=== PATIENT | female | born 1940 | race Caucasian/White ===

== ENCOUNTER → 2017-01-23 | Outpatient (CLI) | payer MEDICARE, OTHER ==
--- NOTE | 2017-01-23 17:05 | WOMENS IMAGING REPORT ---
EXAM DESCRIPTION: BILAT SCREENING MAMMO W/CAD COMPLETED DATE/TIME: 01/23/2017 2:25 pm REASON FOR STUDY: ROUTINE SCREENING; Z12.31 Z12.31 ENCNTR SCREEN MAMMOGRAM FOR MALIGNANT NEOPLASM O F VALERY COMPARISON: 2010, 2012, 2013 TECHNIQUE: Standard craniocaudal and mediolateral oblique views of each breast recorded using [employer] acquisition. LIMITATIONS: None. FINDINGS: Findings present which are benign by mammographic criteria. No suspicious masses, calcifi cations or architectural distortion. Pertinent benign findings: Benign arterial vascular calcifications and skin and breast parenchymal ca lcifications bilaterally. Read with the assistance of CAD. .[facility] - R2 Cenova Version 1.3 .[facility] - R2 Cenova Version 1.3 .[facility] - R2 Cenova Version 2.4 .[facility] - R2 Cenova Version 2.4 .[facility] - R2 Heater Tender Version 9.2 Benign mammographic findings may include one or more of the following: Smooth masses, popcorn/rim/co arse calcifications, asymmetries, post-procedure changes, and lesions with long-standing stability. IMPRESSION: BENIGN MAMMOGRAPHIC FINDINGS. BIRADS 2 BREAST DENSITY: c. The breasts are heterogeneously dense, which may obscure small masses. BIRAD: 2 BENIGN FINDING(S) RECOMMENDATION: ROUTINE SCREENING Please consider bilateral screening tomosynthesis in January 2018 COMMENT: The patient has been notified of the results by letter per SA requirements. Additional no tification policies are in place for contacting patient with suspicious or incomplete findings. Quality ID #[id number]: The [employer] recommends an annual screening mammogram for women aged 40 years or over. This facility utilizes a reminder system to ensure that all patients receive reminder letters, and/or direct phone calls for appointments. This includes reminders for routine scr eening mammograms, diagnostic mammograms, or other Breast Imaging Interventions when appropriate. Th is patient will be placed in the appropriate reminder system. The [employer] (ACR) has developed recommendations for screening MRI of the breast s in certain patient populations, to be used in conjunction with mammography. Breast MRI surveillanc e may be appropriate for women with more than 20% lifetime risk of developing breast cancer as deter mined by genetic testing, significant family history of the disease, or history of mantle radiation f or Hodgkins Disease. ACR Practice Guidelines 2008. TECHNICAL DOCUMENTATION: FINDING NUMBER: (1) ASSESSMENT: (1) JOB ID: [id number] [employer]- All Rights Reserved
== END ==
LOC: WI 11:24
PROVIDERS: ATTEND Family Medicine
DX: Z12.31 Encounter for screening mammogram for malignant neoplasm of breast (principal)
CPT/HCPCS: 77067; G0202

== ENCOUNTER 2017-05-31 13:39 | Inpatient (IN) | payer MEDICARE, OTHER ==
[2017-05-31] MEDS ORDERED: ASPIRIN 81 MG TABLET, CHEWABLE PO ONE (13:43)
[2017-05-31 14:07] LABS: ABSOLUTE BASOPHILS # (AUTO) 0.1 10^3/uL (0.0-0.2); ABSOLUTE LYMPHOCYTES (AUTO) 0.9 10^3/uL (0.5-4.7); ABSOLUTE MONOCYTES (AUTO) 0.9 10^3/uL (0.1-1.4); ABSOLUTE NEUT (AUTO) 6.2 10^3/uL (1.7-8.2); BASOPHILS % (AUTO) 0.8 % (0-2); EOSINOPHILS % (AUTO) 0.4 % (0-6); HEMATOCRIT 40.3 % (36.0-47.0); LYMPHOCYTES % (AUTO) 11.4 % (13-45); MEAN CORPUSCULAR HEMOGLOBIN 28.5 pg (27.0-33.4); MEAN CORPUSCULAR HGB CONC 34.6 g/dL (32.0-36.0); MEAN CORPUSCULAR VOLUME 82 fl (80-97); MONOCYTES % (AUTO) 11.2 % (3-13); PLATELET COUNT 161 10^3/uL (150-450); RED BLOOD COUNT 4.91 10^6/uL (3.72-5.28); SEGMENTED NEUTROPHILS % (AUTO) 76.2 % (42-78); TOTAL CELLS COUNTED % (AUTO) 100 %; WHITE BLOOD COUNT 8.2 10^3/uL (4.0-10.5)
--- NOTE | 2017-05-31 14:15 | RADIOLOGY REPORT (SQ) ---
EXAM DESCRIPTION: CHEST SINGLE VIEW COMPLETED DATE/TIME: 05/31/2017 2:07 pm REASON FOR STUDY: bed1 cp COMPARISON: 01/21/2013 EXAM PARAMETERS: NUMBER OF VIEWS: One view. TECHNIQUE: Single frontal radiographic view of the chest acquired. RADIATION DOSE: NA LIMITATIONS: None. FINDINGS: LUNGS AND PLEURA: No opacities, masses or pneumothorax. No pleural effusion. MEDIASTINUM AND HILAR STRUCTURES: No masses. Contour normal. HEART AND VASCULAR STRUCTURES: Stable cardiomegaly BONES: No acute findings. HARDWARE: None in the chest. OTHER: No other significant finding. IMPRESSION: NO ACUTE RADIOGRAPHIC FINDING IN THE CHEST. TECHNICAL DOCUMENTATION: JOB ID: [id number] [employer]- All Rights Reserved
[2017-05-31 14:25] LABS: ALANINE AMINOTRANSFERASE 28 U/L (9-52); ALBUMIN 4.2 g/dL (3.5-5.0); ALKALINE PHOSPHATASE 99 U/L (38-126); ANION GAP 12 (5-19); ASPARTATE AMINO TRANSFERASE 32 U/L (14-36); BILIRUBIN,DIRECT 0.3 mg/dL (0.0-0.4); BILIRUBIN,TOTAL 1.7 mg/dL (0.2-1.3); BLOOD UREA NITROGEN 11 mg/dL (7-20); CARBON DIOXIDE 30 mmol/L (22-30); CHLORIDE 97 mmol/L (98-107); CREATINE KINASE 73 U/L (30-135); GLUCOSE 130 mg/dL (75-110); SODIUM 138.5 mmol/L (137-145); TOTAL PROTEIN 7.8 g/dL (6.3-8.2)
[2017-05-31 14:28] LABS: POTASSIUM 2.8 mmol/L (3.6-5.0)
--- NOTE | 2017-05-31 14:31 | ER Document Report ---
ED General - General Chief Complaint: Fall Stated Complaint: FALL WEAKNESS Time Seen by Provider: 05/31/17 14:14 Mode of Arrival: Medic Information source: Patient Notes: 77-year-old female on Xarelto history of A. fib presents after a fall. Pt admits to headache, face pain. Pt had back pain with arm pain before these occured TRAVEL OUTSIDE OF THE [place] IN LAST 30 DAYS: No - HPI Onset: Just prior to arrival Onset/Duration: Sudden Quality of pain: Achy Severity: Mild Pain Level: 1 Associated symptoms: Body/muscle aches Exacerbated by: Denies Relieved by: Denies Similar symptoms previously: No Recently seen / treated by doctor: No - Related Data Allergies/Adverse Reactions: erythromycin base [Erythromycin Base] Allergy (Unknown, Verified 05/31/17 13:59) Home Medications: Current Home Medications Dofetilide [Dofetilide] 250 mcg PO Q12 05/31/17 [History] Lorazepam [Lorazepam] 0.5 mg PO Q12HP PRN 05/31/17 [History] Metoprolol Succinate [Toprol Xl 25 mg Tab.sr] 25 mg PO Q12 05/31/17 [History] Omeprazole 20 mg PO DAILY 05/31/17 [History] Rivaroxaban [Xarelto] 20 mg PO DAILY 05/31/17 [History] Past Medical History - Social History Smoking Status: Never Smoker Cigarette use (# per day): No Chew tobacco use (# tins/day): No Smoking Education Provided: No Family History: Hypertension GI Medical History: Reports: Hx Gastroesophageal Reflux Disease Musculoskeltal Medical History: Reports Hx Arthritis Past Surgical History: Reports: Hx Cholecystectomy, Hx Tonsillectomy Review of Systems - Review of Systems Notes: REVIEW OF SYSTEMS: CONSTITUTIONAL : Denies fever, chills, or sweats. Denies recent illness. EENT: Denies eye, ear, throat, or mouth pain or symptoms. Denies nasal or sinus congestion or discharge. Denies throat, tongue, or mouth swelling or difficulty swallowing. CARDIOVASCULAR: admits ot afib RESPIRATORY: Denies cough, cold, or chest congestion. Denies shortness of breath, difficulty breathing, or wheezing. GASTROINTESTINAL: Denies abdominal pain or distention. Denies nausea, vomiting , or diarrhea. Denies blood in vomitus, stools, or per rectum. Denies black, tarry stools. Denies constipation. GENITOURINARY: Denies difficulty urinating, painful urination, burning, frequency, blood in urine, or discharge. FEMALE GENITOURINARY: Denies vaginal bleeding, heavy or abnormal periods, irregular periods. Denies vaginal discharge or odor. MUSCULOSKELETAL: admits ot back pain HEMATOLOGIC : Denies easy bruising or bleeding. LYMPHATIC: Denies swollen, enlarged glands. NEUROLOGICAL: admits to head injury Denies confusion or altered mental status. Denies passing out or loss of consciousness. Denies dizziness or lightheadedness. Denies headache. Denies weakness or paralysis or loss of use of either side. Denies problems with gait or speech. Denies sensory loss, numbness, or tingling. Denies seizures. PSYCHIATRIC: Denies anxiety or stress. Denies depression, suicidal ideation, or homicidal ideation. ALL OTHER SYSTEMS REVIEWED AND NEGATIVE. PHYSICAL EXAMINATION: GENERAL: Well-appearing, well-nourished and in no acute distress. HEAD: Atraumatic, normocephalic. EYES: Pupils equal round and reactive to light, extraocular movements intact, conjunctiva are normal. ENT: Nares patent, oropharynx clear without exudates. Moist mucous membranes. NECK: Normal range of motion, supple without lymphadenopathy LUNGS: Breath sounds clear to auscultation bilaterally and equal. No wheezes rales or rhonchi. HEART: irregular rate and rhythm ABDOMEN: Soft, nontender, nondistended abdomen. No guarding, no rebound. No masses appreciated. Female : deferred Musculoskeletal: Normal range of motion, no pitting or edema. No cyanosis. NEUROLOGICAL: Cranial nerves grossly intact. Normal speech, normal gait. Normal sensory, motor exams PSYCH: Normal mood, normal affect. SKIN: Warm, Dry, normal turgor, no rashes or lesions noted. Dictation was performed using [employer] voice recognition software Physical Exam - Vital signs Vitals: Pulse Ox 99 05/31/17 13:43 Course - Re-evaluation Re-evalutation: 05/31/17 14:37 Patient's potassium noted to be 2.8, CT head was negative but face does note orbital maxillary sinus fracture - Vital Signs Vital signs: Temp Pulse Resp BP Pulse Ox 17 116/82 96 05/31/17 16:15 05/31/17 16:15 05/31/17 16:15 - Laboratory Result Diagrams: 05/31/17 13:57 05/31/17 13:57 Laboratory results interpreted by me: 05/31/17 05/31/17 05/31/17 13:57 13:57 13:57 Lymphocytes % 11.4 L Potassium 2.8 L* Chloride 97 L Glucose 130 H Total Bilirubin 1.7 H NT-Pro-B Natriuret Pep 1840 H Critical Care Note - Critical Care Note Total time excluding time spent on procedures (mins): 45 Comments: minutes of critical care time spent in direct contact evaluating and reevaluating the patient, treating symptoms, reviewing labs and studies and speaking with family and consultants excluding any procedures Discharge - Discharge Clinical Impression: Atrial fibrillation with RVR Condition: Fair Disposition: ADMITTED INPATIENT Admitting Provider: Hospitalist Unit Admitted: IMCU Referrals: KRYS MARTINEZ MD [Primary Care Provider] - Follow up as needed
--- NOTE | 2017-05-31 14:31 | RADIOLOGY REPORT (SQ) ---
EXAM DESCRIPTION: CT HEAD WITHOUT COMPLETED DATE/TIME: 05/31/2017 2:20 pm REASON FOR STUDY: bed 1-pt ams s/p fall per dr lopez COMPARISON: CT brain 04/21/2010 TECHNIQUE: Axial images acquired through the brain without intravenous contrast. Images reviewed wi th bone, brain and subdural windows. Images stored on PACS. All CT scanners at this facility use dose modulation, iterative reconstruction, and/or weight based d osing when appropriate to reduce radiation dose to as low as reasonably achievable (ALARA). [facility]: Dose Right [facility]: CareDose [facility]: Dose Right [facility]: Teradose 4D [facility]: Smart appAttach RADIATION DOSE: CT Rad equipment meets quality standard of care and radiation dose reduction techniq ues were employed. CTDIvol: 61.8 mGy. DLP: 1163 mGy-cm. mGy. LIMITATIONS: None. FINDINGS: VENTRICLES: Normal size and contour. CEREBRUM: Moderate bifrontal and biparietal low attenuation in the deep periventricular white matter from small vessel disease. No CT evidence of acute large territory ischemic change, acute intracrani al hemorrhage, mass effect, or midline shift. CEREBELLUM: No masses. No hemorrhage. No alteration of density. No evidence for acute infarction. EXTRAAXIAL SPACES: No fluid collections. No masses. ORBITS AND GLOBE: No intra- or extraconal masses. Normal contour of globe without masses. CALVARIUM: No fracture. PARANASAL SINUSES: Hemorrhage in the right maxillary sinus related to fractures. SOFT TISSUES: No mass or hematoma. OTHER: There is a right orbital floor fracture. Nondisplaced fractures are also seen in the right an terior and posterior short of the maxillary sinus. IMPRESSION: No acute intracranial changes Moderate white matter disease Hemorrhage in the right maxillary sinus related to right orbital floor fracture, and anterior and pos terior right maxillary sinus fractures EVIDENCE OF ACUTE STROKE: NO. COMMENT: Quality ID # [id number]: Final reports with documentation of one or more dose reduction techniques (e.g., Automated exposure control, adjustment of the mA and/or kV according to patient size, use of iterative reconstruction technique) TECHNICAL DOCUMENTATION: JOB ID: [id number] [employer]- All Rights Reserved
[2017-05-31] MEDS ORDERED: DILTIAZEM HCL INJ 25 MG/5 ML VIAL IV ONE (14:32)
[2017-05-31] MEDS ORDERED: METOCLOPRAMIDE HCL INJ/PF 10 MG/2 ML SDV IV ONE (14:34)
[2017-05-31 14:35] LABS: CREATINE KINASE MB 0.23 ng/mL (<4.55); TROPONIN I 0.013 ng/mL
--- NOTE | 2017-05-31 14:35 | RADIOLOGY REPORT (SQ) ---
EXAM DESCRIPTION: CT CERVICAL SPINE WITHOUT COMPLETED DATE/TIME: 05/31/2017 2:20 pm REASON FOR STUDY: bed 1-pt ams s/p fall per dr lopez COMPARISON: CT brain same date TECHNIQUE: Axial images acquired through the cervical spine without intravenous contrast. Images re viewed with lung, soft tissue and bone windows. Reconstructed coronal and sagittal MPR images review ed. Images stored on PACS. All CT scanners at this facility use dose modulation, iterative reconstruction, and/or weight based d osing when appropriate to reduce radiation dose to as low as reasonably achievable (ALARA). [facility]: Dose Right [facility]: CareDose [facility]: Dose Right [facility]: Teradose 4D [facility]: [employer] RADIATION DOSE: CT Rad equipment meets quality standard of care and radiation dose reduction techniq ues were employed. CTDIvol: 17.3 mGy. DLP: 362 mGy-cm. mGy. LIMITATIONS: None. FINDINGS: ALIGNMENT: Anatomic. MINERALIZATION: Osteopenic VERTEBRAL BODIES: No fractures or dislocation. DISCS: No significant disc disease. There is moderate to high-grade right right foraminal narrowing at C5-6 from facet and uncovertebral hypertrophy. Moderate bilateral foraminal narrowing at C6-7 fro m facet and uncovertebral hypertrophy. FACETS, LATERAL MASSES, POSTERIOR ELEMENTS: No fractures. No dislocation. No acute findings. HARDWARE: None in the spine. VISUALIZED RIBS: No fractures. LUNG APICES AND SOFT TISSUES: No significant or acute findings. OTHER: No other significant finding. IMPRESSION: No acute fracture or malalignment. TECHNICAL DOCUMENTATION: JOB ID: [id number] Quality ID # [id number]: Final reports with documentation of one or more dose reduction techniques (e.g., Au tomated exposure control, adjustment of the mA and/or kV according to patient size, use of iterative reconstruction technique) 2010 [employer]- All Rights Reserved
[2017-05-31] MEDS ORDERED: POTASSIUM CHLORIDE 10 MEQ TABLET.SA PO ONE (14:37)
[2017-05-31 14:57] LABS: INTERNATIONAL RATION (INR) 0.98; PROTHROMBIN TIME 13.7 SEC (11.4-15.4)
[2017-05-31] MEDS: DILTIAZEM HCL/D5W 125 MG/125 ML RTUINJ IV PRN ×2 (15:01→22:15)
[2017-05-31] MEDS ORDERED: ACETAMINOPHEN 325 MG TABLET PO PRN (16:17)
[2017-05-31] MEDS ORDERED: LEVALBUTEROL HCL NEB 0.63 MG/3 ML AMPUL NEB PRN (16:17)
[2017-05-31] MEDS: POTASSI CL 20 MEQ/50 ML RIDER 20 MEQ/50 ML RTUPB IV SCH ×3 (16:32→20:13)
[2017-05-31] MEDS ORDERED: LORAZEPAM 1 MG TABLET PO PRN (17:40)
--- NOTE | 2017-05-31 18:08 | PDOC H&P ---
History of Present Illness Admission Date/PCP: 05/31/17 16:33 KRYS MARTINEZ MD History of Present Illness: ANNIE RUIZ is a 77 year old lady with a past medical history of. Hypertension Atrial Fibrillation on Xarelto and Tikosyn GERD Anxiety He reports having a cough and raspy throat for the past 2-3 days with generalized weakness and decreased appetite. She has had no vomiting abdominal pain chest pain or shortness of breath. This morning around 1130 she was in bed when she got up to go to the bathroom she felt nauseated and dizzy and fell on the floor. She noticed pain around her right eye and head. Her grandson heard her fall and ran in and saw her on her side on the floor she was awake and alert at the time. She was brought into the emergency room and a CAT scan of the head showed no intracranial bleed however did show a Right inferior orbital wall fracture with Right anterior and posterior maxillary sinus wall fractures and in the right maxillary sinus. Has some right periorbital edema. No double vision. Has had loose stools approximately twice a day for the past 1 month. No abdominal pain or cramping no hematochezia or melena. No recent change in medications. In the Emergency room she was found to have atrial fibrillation with RVR and was given 25 mg of IV Cardizem bolus followed by Cardizem drip. Spoke to the ENT surgeon bacon skin lifter at [facility] Dr. Joseph, not feel any further interventions were indicated for the maxillary sinus wall fracture or bleeding. She said there was no contraindication to anticoagulation given these findings, as long as she was not having any anterior or posterior epistaxis. I spoke to the facial plastic surgeon on-call Dr. Smith, and she said that as long as ocular muscle movements were intact, there was no need for any further intervention, and no contraindication to anticoagulation. Past Medical History Cardiac Medical History: Reports: Atrial Fibrillation Renal/ Medical History: Denies: None, Chronic Kidney Disease, End Stage Renal Disease, Nephrolithiasis, Other Malignancy Medical History: Denies: None, Bone Cancer, Brain Cancer, Breast Cancer, Cervical Cancer, Colorectal Cancer, Leukemia, Liver Cancer, Lung Cancer, Lymphoma, Ovarian Cancer , Pancreatic Cancer, Renal (Kidney) Cancer, Skin Cancer, Other GI Medical History: Reports: Gastroesophageal Reflux Disease Musculoskeltal Medical History: Reports: Arthritis Skin Medical History: Denies: None, Eczema, Psoriasis, Other Psychiatric Medical History: Reports: General Anxiety Disorder Past Surgical History Past Surgical History: Reports: Cardiac Catheterization - ablasion in jun, Cholecystectomy, Tonsillectomy Social History Lives with: Family Smoking Status: Never Smoker Frequency of Alcohol Use: None Hx Recreational Drug Use: No Drugs: None - Advance Directive Resuscitation Status: Full Code Family History Family History: CVA, DM, Hypertension Parental Family History Reviewed: Yes Children Family History Reviewed: Yes Sibling(s) Family History Reviewed.: Yes Medication/Allergy Home Medications: Ibuprofen 800 mg PO QHS 01/21/13 Dofetilide [Dofetilide] 250 mcg PO Q12 05/31/17 Lorazepam [Lorazepam] 0.5 mg PO Q12HP PRN 05/31/17 Metoprolol Succinate [Toprol Xl 25 mg Tab.sr] 25 mg PO Q12 05/31/17 Omeprazole 20 mg PO DAILY 05/31/17 Rivaroxaban [Xarelto] 20 mg PO DAILY 05/31/17 Allergies/Adverse Reactions: erythromycin base [Erythromycin Base] Allergy (Unknown, Verified 05/31/17 13:59) Review of Systems Constitutional: PRESENT: as per HPI, headache(s), weakness Eyes: ABSENT: as per HPI, visual disturbances, other Ears: ABSENT: as per HPI, hearing changes, other Nose, Mouth, and Throat: PRESENT: headache(s). ABSENT: sore throat Cardiovascular: ABSENT: as per HPI, chest pain, dyspnea on exertion, edema, orthropnea, palpitations, other Respiratory: PRESENT: cough, sputum. ABSENT: dyspnea, hemoptysis Gastrointestinal: PRESENT: diarrhea. ABSENT: as per HPI, abdominal pain, bloating, coffee ground emesis, constipation, dysphagia, heartburn, hematemesis , hematochezia, melena, nausea, vomiting, other Genitourinary: ABSENT: as per HPI, difficulty urinating, dysuria, hematuria, nocturia, other Musculoskeletal: ABSENT: joint swelling, muscle weakness Integumentary: ABSENT: as per HPI, diaphoresis, erythema, lesions, pruritus, rash, wounds, other Neurological: PRESENT: syncope. ABSENT: as per HPI, abnormal gait, abnormal movements, abnormal speech, confusion, convulsions, dizziness, focal weakness, frequent falls, lack of coordination, memory loss, numbness, paresthesias, restless legs, tingling, tremor(s), vertigo, weakness, other Psychiatric: PRESENT: anxiety. ABSENT: depression, hallucinations, suicidal ideation Endocrine: ABSENT: as per HPI, cold intolerance, flushing, heat intolerance, menstrual abnormalities, polydipsia, polyphagia, polyuria, other Hematologic/Lymphatic: ABSENT: as per HPI, easy bleeding, easy bruising, lymphadenopathy, other Physical Exam Vital Signs: Temp Pulse Resp BP Pulse Ox 23 H 123/83 96 05/31/17 17:15 05/31/17 17:15 05/31/17 17:15 Intake & Output 05/30/17 05/31/17 06/01/17 06:59 06:59 06:59 Weight 84.368 kg Additional comments: Elderly female sitting up in bed not in acute distress HEENT: Moist pink oropharyngeal mucosa with no lesions, equal and reactive to light bilaterally, no conjunctival discharge no icterus Normal extraocular muscle movement bilaterally with no nystagmus or diplopia She has bruising and swelling under her right eye. Neck: Supple trachea is midline no JVD no carotid bruits heard Respiratory: Normal effort, clear to auscultation bilaterally Cardiac: S1-S2 irregular tachycardia, no peripheral edema no cyanosis no calf tenderness no thrills palpable Abdomen: Soft, no focal tenderness, normal bowel sounds Skin: Warm and dry Neurologic: Awake and alert oriented 3 no facial droop motor strength 4+ out of 5 lateral upper extremities and right lower extremity. Left lower extremity 3+ out of 5 which she says is chronic due to her left hip pain Results Laboratory Results: BBC count 8200 Hemoglobin 14 Platelet count 161,000 INR 0.98 PTT 29 Sodium 138.5 Potassium 2.8 Calcium 9.0 Creatinine 0.71 Brain natruretic peptide 1840 CK and troponin normal Magnesium 1.9 EKG Comments: A. fib with RVR. Impressions: Cervical Spine CT 05/31/17 00:00 IMPRESSION: No acute fracture or malalignment. Head CT 05/31/17 00:00 IMPRESSION: No acute intracranial changes Moderate white matter disease Hemorrhage in the right maxillary sinus related to right orbital floor fracture , and anterior and posterior right maxillary sinus fractures EVIDENCE OF ACUTE STROKE: NO. Chest X-Ray 05/31/17 13:43 IMPRESSION: NO ACUTE RADIOGRAPHIC FINDING IN THE CHEST. Assessment & Plan - Diagnosis (1) Syncope and collapse Is this a current diagnosis for this admission?: Yes (2) Maxillary sinus fracture Is this a current diagnosis for this admission?: Yes Plan: Pain control. Conservative management. (3) Fracture of inferior orbital wall Is this a current diagnosis for this admission?: Yes Plan: Pain control. Conservative management. (4) Anxiety Is this a current diagnosis for this admission?: Yes Plan: Lorazepam at bedtime. (5) GERD (gastroesophageal reflux disease) Is this a current diagnosis for this admission?: Yes Plan: Continue PPI (6) Atrial fibrillation with RVR Is this a current diagnosis for this admission?: Yes Plan: Continue Cardizem drip, titrate for goal heart rate in the 110s. Xarelto and Tikosyn will be resumed in the morning. - Time Time Spent: 50 to 70 Minutes - Inpatient Certification Medical Necessity: Need Close Monitoring Due to Risk of Patient Decompensation, Need For Continuous Telemetry Monitoring, Risk of Complication if Not Cared For in Hospital
[2017-05-31] MEDS: METOPROLOL SUCCINATE 25 MG TAB.SR.24H PO SCH (21:25)
--- NOTE | 2017-05-31 22:53 | EKG REPORT ---
SEVERITY:- ABNORMAL ECG - SINUS OR ECTOPIC ATRIAL TACHYCARDIA ST DEPRESSION, CONSIDER ISCHEMIA, DIFFUSE PROLONGED QT INTERVAL : Confirmed by: Miguel Parrish 31-May-2017 22:52:25
[2017-06-01] MEDS: DILTIAZEM HCL/D5W 125 MG/125 ML RTUINJ IV PRN (05:43)
[2017-06-01] MEDS ORDERED: LANSOPRAZOLE 15 MG TAB.RAP.DR PO SCH (06:00)
[2017-06-01 08:22] LABS: HEMATOCRIT 37.9 % (36.0-47.0); HEMOGLOBIN 13.1 g/dL (12.0-15.5); MEAN CORPUSCULAR HEMOGLOBIN 28.2 pg (27.0-33.4); MEAN CORPUSCULAR HGB CONC 34.4 g/dL (32.0-36.0); MEAN CORPUSCULAR VOLUME 82 fl (80-97); PLATELET COUNT 171 10^3/uL (150-450); RED BLOOD COUNT 4.62 10^6/uL (3.72-5.28); RED CELL DISTRIBUTION WIDTH 13.9 % (11.5-14.0); WHITE BLOOD COUNT 6.1 10^3/uL (4.0-10.5)
[2017-06-01 08:29] LABS: INTERNATIONAL RATION (INR) 1.01
[2017-06-01 08:30] LABS: PARTIAL THROMBOPLASTIN TIME 29.7 SEC (23.5-35.8)
[2017-06-01 08:42] LABS: ALANINE AMINOTRANSFERASE 35 U/L (9-52); ALBUMIN 3.9 g/dL (3.5-5.0); ALKALINE PHOSPHATASE 88 U/L (38-126); ANION GAP 13 (5-19); ASPARTATE AMINO TRANSFERASE 30 U/L (14-36); BILIRUBIN,DIRECT 0.2 mg/dL (0.0-0.4); BILIRUBIN,TOTAL 1.1 mg/dL (0.2-1.3); BLOOD UREA NITROGEN 13 mg/dL (7-20); CALCIUM 8.9 mg/dL (8.4-10.2); CARBON DIOXIDE 29 mmol/L (22-30); CHLORIDE 97 mmol/L (98-107); GLUCOSE 99 mg/dL (75-110); PHOSPHORUS 2.6 mg/dL (2.5-4.5); POTASSIUM 3.2 mmol/L (3.6-5.0); SODIUM 138.8 mmol/L (137-145); TOTAL PROTEIN 7.1 g/dL (6.3-8.2)
[2017-06-01] MEDS ORDERED: POTASSIUM CHLORIDE 10 MEQ TABLET.SA PO ONE (09:06)
[2017-06-01] MEDS ORDERED: POTASSIUM CHLORIDE 20 MEQ/15 ML UDCUP PO ONE (09:07)
[2017-06-01] MEDS: METOPROLOL SUCCINATE 25 MG TAB.SR.24H PO SCH (09:46)
[2017-06-01] MEDS ORDERED: ACETAMINOPHEN 325 MG TABLET PO PRN (11:00)
--- NOTE | 2017-06-01 12:58 | EKG REPORT ---
SEVERITY:- ABNORMAL ECG - ATRIAL FIBRILLATION BORDERLINE RIGHT AXIS DEVIATION BORDERLINE ST DEPRESSION, DIFFUSE LEADS ABNORMAL T, CONSIDER ISCHEMIA, DIFFUSE LEADS : Confirmed by: Suhas Sandy MD 01-Jun-2017 12:58:01
[2017-06-01] MEDS ORDERED: DOFETILIDE 125 MCG CAPSULE PO ONE (13:00)
[2017-06-01 16:18] VITALS: BP 99/64
[2017-06-01] MEDS ORDERED: RIVAROXABAN 10 MG TABLET PO ONE (17:00)
--- NOTE | 2017-06-01 17:46 | PDOC DISCHARGE SUMMARY ---
General - Admit/Disc Date/PCP Admission Date/Primary Care Provider: 05/31/17 16:33 KRYS MARTINEZ MD Discharge Date: 06/01/17 - Discharge Diagnosis (1) Syncope and collapse Is this a current diagnosis for this admission?: Yes (2) Maxillary sinus fracture Is this a current diagnosis for this admission?: Yes (3) Fracture of inferior orbital wall Is this a current diagnosis for this admission?: Yes (4) Anxiety Is this a current diagnosis for this admission?: Yes (5) GERD (gastroesophageal reflux disease) Is this a current diagnosis for this admission?: Yes (6) Atrial fibrillation with RVR Is this a current diagnosis for this admission?: Yes - Additional Information Resuscitation Status: Full Code Discharge Diet: Cardiac, Other (Comments) - NPO past midnight Home Medications: Lorazepam 0.5 mg PO Q12HP PRN 05/31/17 Metoprolol Succinate [Toprol Xl 25 mg Tab.sr] 25 mg PO Q12 05/31/17 Omeprazole 20 mg PO DAILY 05/31/17 Acetaminophen [Tylenol 325 mg Tablet] 325 mg PO Q4HP PRN tablet 06/01/17 Rivaroxaban [Xarelto 10 mg Tablet] 20 mg PO DAILY@1700 tablet 06/01/17 History of Present Illness History of Present Illness: ANNIE RUIZ is a 77 year old lady with a past medical history of. Hypertension Atrial Fibrillation on Xarelto and Tikosyn GERD Anxiety She reports having a cough and raspy throat for the past 2-3 days with generalized weakness and decreased appetite. She has had no vomiting abdominal pain chest pain or shortness of breath. This morning around 1130 she was in bed when she got up to go to the bathroom she felt nauseated and dizzy and fell on the floor. She noticed pain around her right eye and head. Her grandson heard her fall and ran in and saw her on her side on the floor she was awake and alert at the time. She was brought into the emergency room and a CAT scan of the head showed no intracranial bleed however did show a Right inferior orbital wall fracture with Right anterior and posterior maxillary sinus wall fractures and in the right maxillary sinus. No double vision. Has had loose stools approximately twice a day for the past 1 month. No abdominal pain or cramping no hematochezia or melena. No recent change in medications. In the Emergency room she was found to have atrial fibrillation with RVR and was given 25 mg of IV Cardizem bolus followed by Cardizem drip. Spoke to the ENT surgeon marketing/sales person at [facility] Dr. Joseph, not feel any further interventions were indicated for the maxillary sinus wall fracture or bleeding. She said there was no contraindication to anticoagulation given these findings, as long as she was not having any anterior or posterior epistaxis. I spoke to the facial plastic surgeon on-call Dr. Smith, and she said that as long as ocular muscle movements were intact, there was no need for any further intervention, and no contraindication to anticoagulation. Hospital Course Hospital Course: The patient is a 77-year-old female with past medical history of Atrial fibrillation on Xarelto and Tikosyn GERD Anxiety She was admitted to [facility] level of care with the Cardizem drip and p.o. metoprolol was continued. On June [address] Kendall Javier who is her diplomatic interpreter. She has had A. fib ablation in the past and he recommended LISA and cardioversion which unfortunately cannot be done at this institution. I spoke to Dr. Ulises Romero who has accepted the patient in transfer to [facility]. Physical Exam Vital Signs: Temp Pulse Resp BP Pulse Ox 98.7 F 117 H 12 99/64 L 95 06/01/17 15:42 06/01/17 15:42 06/01/17 15:42 06/01/17 15:42 06/01/17 15:42 Intake & Output 05/31/17 06/01/17 06/02/17 06:59 06:59 06:59 Intake Total 1250 236 Output Total 0 Balance 1250 236 Weight 79.6 kg Additional comments: Physical exam: Elderly female sitting up in bed not in acute distress HEENT: Moist pink oropharyngeal mucosa with no lesions pupils equal and reactive to light bilaterally Normal extraocular muscle movement with no nystagmus or diplopia She has some ecchymosis around her right eye and also some sub-conjunctival hemorrhage. Normal external ears and nose no epistaxis anterior or posterior Neck is supple, normal range of motion with no tenderness trachea is midline no JVD no carotid bruits heard Respiratory: Normal effort, clear to auscultation bilaterally Cardiac: S1-S2 irregular, no peripheral edema no cyanosis no calf tenderness Abdomen: Soft no focal tenderness normal bowel sounds Results Laboratory Results: 06/01/17 07:20 06/01/17 07:20 06/01/17 06/01/17 06/01/17 07:20 07:20 07:20 WBC 6.1 RBC 4.62 Hgb 13.1 Hct 37.9 MCV 82 MCH 28.2 MCHC 34.4 RDW 13.9 Plt Count 171 Sodium 138.8 Potassium 3.2 L Chloride 97 L Carbon Dioxide 29 Anion Gap 13 BUN 13 Creatinine 0.75 Est GFR ( Amer) > 60 Est GFR (Non-Af Amer) > 60 Glucose 99 Calcium 8.9 Phosphorus 2.6 Magnesium 2.0 Total Bilirubin 1.1 AST 30 ALT 35 Alkaline Phosphatase 88 Total Protein 7.1 Albumin 3.9 TSH 2.46 05/31/17 19:04 Troponin I 0.022 Impressions: Cervical Spine CT 05/31/17 00:00 IMPRESSION: No acute fracture or malalignment. Head CT 05/31/17 00:00 IMPRESSION: No acute intracranial changes Moderate white matter disease Hemorrhage in the right maxillary sinus related to right orbital floor fracture , and anterior and posterior right maxillary sinus fractures EVIDENCE OF ACUTE STROKE: NO. Chest X-Ray 05/31/17 13:43 IMPRESSION: NO ACUTE RADIOGRAPHIC FINDING IN THE CHEST. Plan Time Spent: Greater than 30 Minutes
--- NOTE | 2017-06-01 20:08 | CONSULTATION REPORT E ---
Consultation Report NAME: ANNIE RUIZ : 1940 AGE: 77Y DATE: 06/01/2017 ROOM: 328 A TO: JOVAN MEDINA M.D. FROM: CHATNALE PALACIO M.D. Requesting Physician HISTORY OF PRESENT ILLNESS: Note, the patient is a pleasant 77-year-old female with history of atrial fibrillation, status post ablation in 07/2016 and maintained in sinus rhythm after that on Tikosyn and also on Xarelto for stroke prophylaxis. States that since the last 2 days prior to admission felt that she was not doing well with a raspy throat and a cough which is dry. She had no vomiting, abdominal pain, chest pain, or shortness of breath. She also has generalized weakness and decreased appetite. The patient states that the last dose of Xarelto she took was Thursday night and also Tikosyn, the last dose was Thursday. She did not take her dose of Tikosyn in the morning of 05/31/2018. At 7:30 the patient went to the bathroom, felt very weak and nauseous, and came back states that she felt very dizzy and diaphoretic without any chest pain, discomfort, shortness of breath, or rapid palpitations and fell to the floor. She tells me that she did not loose consciousness but did hit her face and has sustained a right orbital floor fracture and contusion of the right periorbital area. The patient when she went to the ER was seen to be in rhythm, which was fast and was diagnosed as atrial fibrillation and placed on a Cardizem drip. At present the patient continues to be in atrial fibrillation. She denies any chest pain or discomfort. There is no PND, orthopnea. The patient states that she rarely feels palpitations. She denies any PND, orthopnea. The patient does have some pain in the right periorbital area. There are no TIA or CVA symptoms. Again the patient tells me that she did not become syncopal and just felt very weak and dizzy. PAST MEDICAL HISTORY: The patient states that she has a history of atrial fibrillation and with recurrence after 2 cardioversions. At that time she was recommended to have an ablation, at which time she got very anxious and saw a psychiatrist and was placed on an anxiolytic medication and felt better. Subsequently in 07/2016 she underwent ablation of the atrial fibrillation focus and was placed on Tikosyn and Xarelto. She also has a history of generalized anxiety disorder and also has arthritis and also has gastroesophageal reflux disease. There is no history of hypertension, no history of diabetes mellitus, no history of thyroid disease, no history of TIA or CVA, no history of depression. History of anxiety present. There is no history of chronic kidney disease. There is no history of GI bleed. She does have GERD. ALLERGIES: She is allergic to erythromycin. MEDICATIONS: 1. Cardizem 10 mg per hour. 2. *------* 50 mg p.o. q.6.a.m. 3. Lorazepam 0.5 mg p.o. q.12 hours p.r.n. 4. Tylenol 325 mg p.o. q.4 hours p.r.n. 5. Metoprolol succinate (Toprol XL) 25 mg p.o. daily. 6. Xarelto 20 mg p.o. daily. FAMILY HISTORY: Positive for CVA, diabetes mellitus, and hypertension. No history of coronary artery disease. PAST SURGICAL HISTORY: Positive for cardiac catheterization and ablation in 07/2016, cholecystectomy, and tonsillectomy. ADVANCE DIRECTIVE: The patient is a full code. Her daughter is the surrogate healthcare decision maker. SOCIAL HISTORY: The patient never smoked. There is no history of EtOH abuse. REVIEW OF SYSTEMS: CONSTITUTIONAL: Denies any fever, chills, or rigors. Complains of generalized fatigue and weakness, especially in the last 2-3 days prior to admission. HEAD: Does have some pain in the right periorbital area. She does have dizziness which made her fall and has sustained a fracture. EYES: No history of amblyopia or diplopia. No history of amaurosis fugax. EARS: No history of hearing loss. No history of tinnitus. No history of recurrent ear infections. NOSE: No history of hay fever. No history of nasal polyps. No history of nosebleeds. MOUTH: No history of altered taste sensation. No ulcers in the mouth. No bleeding from the gums. THROAT: No history of odynophagia or dysphagia. No history of recurrent sore throats. SKIN: No history of pruritus. No history of yellowish discoloration of the skin. No history of psoriasis. No history of skin cancer. NECK: Denies any c-spine arthritis symptoms. No swelling in the neck, no goiter. LUNGS: No history of asthma or COPD. Recent symptoms of raspy throat and a dry cough, at times usually dry, at times very scanty white sputum. There is no wheezing. There is no history of sleep apnea. No history of pulmonary embolism. No history of pleuritic chest pain. No history of hemoptysis. CARDIAC: No history of hypertension. No history of coronary artery disease, [place], or anginal symptoms. No history of congestive heart failure. History of recurrent atrial fibrillation, she has been cardioverted twice and had gone back into atrial fibrillation. She has had ablation of the atrial fibrillation focus in 07/2016. At present there is recurrence. Note that the initial EKG showed atrial flutter with undiscernible P-waves versus ectopic atrial tachycardia, the QTC interval was prolonged at 537. This makes us wonder whether the patient has Torsades, but the patient denies any palpitations, chest pain, discomfort. In spite of her recurrent atrial fibrillation she is asymptomatic from the point of view that she does not feel any palpitations. There is no PND, orthopnea. There is no leg edema. At present the patient clearly states that she did fall down and she felt very weak and dizzy but did not have a syncopal episode. There is no history of angina symptoms. GASTROINTESTINAL: History of GERD. No history of peptic ulcer disease. No history of GI bleed. No history of fatty food intolerance. No history of cirrhosis. No history of abdominal pain. No history of altered bowel movements. MUSCULOSKELETAL: History of arthritis present but no collagen vascular disease. RENAL: No history of chronic kidney disease. No symptoms of UTI. No hematuria, pyuria, or dysuria. ENDOCRINE: No history of diabetes mellitus, no history of thyroid disease. No history polydipsia, polyuria. No history of heat or cold intolerance. METABOLIC: No history of obesity. No history of hyperlipidemia. CENTRAL NERVOUS SYSTEM: No history of TIA or CVA. No history of sleep apnea. No history of headaches, migraines, or seizures but the patient has right periorbital pain after the fall and fracture of the right orbital floor. PSYCHIATRIC: History of anxiety, seems to be controlled with current Ativan. There is no history of depression. No history of suicidal ideation. No history of homicidal ideation. HEMATOLOGICAL: No history of bleeding diathesis. No history of clotting disorders. VASCULAR: No history of calf or buttock claudication. No history of DVT. PHYSICAL EXAMINATION: GENERAL: On examination the patient is well-built and well-nourished, appears to be slightly in pain due to pain in the right periorbital area. VITAL SIGNS: Her temperature is 99.1 degrees Fahrenheit, pulse is 103 beats per minute rhythm shows atrial fibrillation, blood pressure is 128/72, respirations are 16 per minute, O2 saturations are 94% on room air. HEENT: Head is atraumatic, normocephalic. Eyes: Pupils are round, regular, reactive to light. There is right periorbital edema and there is tenderness in the lower part of the right orbit. There is no facial palsy. External ocular movements are intact. There is no conjunctival pallor. There is no scleral icterus. Ears: There are no lesions on the pinnae, tympanic membranes are intact, external auditory canals are clear. Nose: There is no deviation of nasal septum, there is no inflammation of the nasal mucous membranes, there is no epistaxis. Mouth: Mucous membranes of the mouth are moist, tongue is moist, there are no ulcers, there is no bleeding from the gum. Throat: There is no redness of the oropharynx, there are no exudates. SKIN: There are no skin rashes. There are no petechiae or ecchymosis. There is no skin lesion. NECK: Supple. There is no JVD. There is no lymphadenopathy. There is no goiter. Carotids are equal. There is no bruit. Trachea is central. LUNGS: Clear to auscultation and percussion. There is no chest wall tenderness. HEART: S1 and S2 is heard. S1 is variable intensity. There is no S3 gallop. There is no S4 gallop. There is a systolic murmur in the left sternal border and the apex. There is no rub. ABDOMEN: Soft, nontender. There is no hepatosplenomegaly. Bowel sounds are well heard. There are no tender areas or masses. There is no rebound, guarding, or rigidity. EXTREMITIES: Femorals are well felt. There are no femoral bruits. Leg pulses are well felt. There is no pedal edema. There is no cyanosis or clubbing. There is no DVT. There is no calf tenderness. CENTRAL NERVOUS SYSTEM: The patient is conscious, awake, alert and oriented x3 with no focal deficits. PSYCHIATRIC: The patient's judgment and insight are intact. Her affect is normal. IMAGING STUDIES: The patient's cervical spine CT shows no acute fracture or malalignment. The patient's head CT shows no acute intracranial changes. Moderate white matter disease. Hemorrhage in the right maxillary sinus related to the right orbital floor fracture and anterior and posterior right maxillary sinus fractures. No evidence of stroke. The patient's chest x-ray shows no acute changes. The patient's EKG as mentioned earlier shows atrial flutter with diffuse ST-T changes, QTC is prolonged at 537. There is prolonged QT intervals. The differential diagnosis of the patient's rhythm is atrial fib/flutter with us not seeing the flutter waves probably versus ectopic atrial tachycardia but subsequently the patient did go into atrial fibrillation as per the EKG of this morning at 10:51 a.m. shows atrial fibrillation with a ventricular response of 81 beats per minute, ST depression in diffuse leads, abnormal T, consideration of ischemia diffuse leads. LABORATORY DATA: The patient's white count is 6100, hemoglobin 13.1, hematocrit is 37.9, and the platelet count is 171,000. The patient's ProTime is 14, INR is 1.01, PTT is 29.7. The patient's sodium is 138, potassium is low at 3.2, this is being replaced, chloride is 97. The patient's CO2 is 29. The patient's BUN is 13, creatinine 0.75, GFR is greater than 60. The patient's glucose is 99, calcium is 8.9, phosphorus is 2.6, magnesium is 2.0 yesterday it was 1.9. Liver function tests are normal. The patient's troponin I is negative x2. The CPK-MB is also negative. The patient's albumin is 3.9, total protein is 7.1. The patient's TSH is 2.46. IMPRESSION: 1. Recurrent atrial fibrillation after ablation. Breakthrough on Tikosyn. Would recommend restart the patient's Tikosyn, watch the patient's QTC, restart the patient's Xarelto but would be very cautious and closely watch the patient for any ongoing bleeding especially posterior nosebleed since the patient has an orbital fracture. Consider transferring the patient to [facility] for possible LISA guided ablation. 2. Hypokalemia. Note that the patient's potassium has been replaced. 3. Fall without loss of consciousness as per the patient with right orbital floor fracture and also fracture of the maxillary sinus. 4. Arthritis. 5. GERD. 6. Anxiety. RECOMMENDATION: As mentioned earlier the hospitalist has discussed with the ENT in [facility] and they state that as long as the ocular movements are normal there is no need for intervention and they would watch the patient closely to make sure that there is untoward bleeding with Xarelto. Also the hospitalist has contacted Dr. Javier, who initially asked us to do a LISA cardioversion, which we do not do here. Hence, the patient has been accepted by Dr. Montgomery *------* for transfer to [facility]. Continue beta elysia. Continue Xarelto, watch for bleeding. Continue Tikosyn, watch for QTC interval. Continue anxiolytic agent. Make sure to recheck the patient's potassium to be sure that it is normal. We will sign off the case as discussed with the hospitalist. TIME SPENT: Note the patient was seen at 8 a.m., 45 minutes spent on this patient with more than 50 percent of the time spent on direct patient care. Her medications have been reviewed and medications such as Tikosyn and Xarelto have been restarted. Note medical decision is of high complexity. DICTATING PHYSICIAN: JOVAN MEDINA M.D. [id number] Y#: [id number] ID: [id number] JOB#: [id number] ACCT: [id number] cc:JOVAN MEDINA M.D. >
[2017-06-01] MEDS ORDERED: DOFETILIDE 125 MCG CAPSULE PO SCH (22:00)
[2017-06-02] MEDS ORDERED: METOPROLOL SUCCINATE 25 MG TAB.SR.24H PO SCH (10:00)
[2017-06-02] MEDS ORDERED: RIVAROXABAN 10 MG TABLET PO SCH (17:00)
== END 2017-06-01 19:51 | disposition short-term general hospital (02) | DRG 309 ==
LOC: ER 13:39 → EH 16:33 → 3S 18:52
PROVIDERS: ADMIT Hospitalist; ATTEND Hospitalist
DX: I48.91 Unspecified atrial fibrillation (principal); S02.31XA Fracture of orbital floor, right side, initial encounter for closed fracture; S02.40CA Maxillary fracture, right side, initial encounter for closed fracture; K21.9 Gastro-esophageal reflux disease without esophagitis; M19.90 Unspecified osteoarthritis, unspecified site; E87.6 Hypokalemia; F41.9 Anxiety disorder, unspecified; Y92.003 Bedroom of unspecified non-institutional (private) residence as the place of occurrence of the external cause; W18.30XA Fall on same level, unspecified, initial encounter; Z79.899 Other long term (current) drug therapy; Z79.02 Long term (current) use of antithrombotics/antiplatelets; Z88.1 Allergy status to other antibiotic agents; Z82.49 Family history of ischemic heart disease and other diseases of the circulatory system; Z86.73 Personal history of transient ischemic attack (TIA), and cerebral infarction without residual deficits; Z83.3 Family history of diabetes mellitus; Z90.49 Acquired absence of other specified parts of digestive tract
CPT/HCPCS: 36415; 70450; 71010; 72125; 80053; 82550; 82553; 83735; 83880; 84100; 84443; 84484; 85025; 85027; 85610; 85730; 93005; 93010; 96365; 96366; 96375; 96376; 99291; G8978-GP; G8979-GP; J2765; J3480; J3490